=== PATIENT | male | born 1995 | race Two or more races ===

== ENCOUNTER 2021-01-08 18:59 | Emergency (ER) | payer MEDICAID, OTHER ==
[~2021-01-08] VITALS: Ht 198.1 cm; Wt 104.3 kg
[2021-01-08] MEDS ORDERED: LIDOCAINE 1% HCL (LOCAL ANESTH.) INJ 20ML MDV ID ONE (21:15)
[2021-01-08 22:00] VITALS: BP 118/76
== END 2021-01-08 22:14 | disposition home or self-care (01) ==
LOC: ER 18:59
DX: S01.112A Laceration without foreign body of left eyelid and periocular area, initial encounter (principal); S50.12XA Contusion of left forearm, initial encounter; J45.909 Unspecified asthma, uncomplicated; I50.9 Heart failure, unspecified; F17.210 Nicotine dependence, cigarettes, uncomplicated; W17.89XA Other fall from one level to another, initial encounter; Y93.89 Activity, other specified; Y92.89 Other specified places as the place of occurrence of the external cause; Y99.8 Other external cause status
CPT/HCPCS: 12013; 70450; 70486; 72125; 73090; 93005; 99285; J2001

== ENCOUNTER 2021-01-21 17:32 | Emergency (ER) | payer MEDICAID ==
[~2021-01-21] VITALS: Ht 195.6 cm; Wt 104.3 kg
[2021-01-21 17:46] VITALS: BP 115/68
[2021-01-21] MEDS ORDERED: IOHEXOL 350 MG/ML 100ML IJ ONE (18:37)
== END 2021-01-21 22:09 | disposition left against medical advice (07) ==
LOC: ER 17:32
DX: M25.532 Pain in left wrist (principal); Z53.21 Procedure and treatment not carried out due to patient leaving prior to being seen by health care provider; W20.8XXA Other cause of strike by thrown, projected or falling object, initial encounter; Y93.89 Activity, other specified; Y92.89 Other specified places as the place of occurrence of the external cause; Y99.8 Other external cause status
CPT/HCPCS: 73110; Q9967